=== PATIENT | male | born 1990 | race Caucasian/White ===

== ENCOUNTER 2020-11-27 08:28 | Emergency (ER) | payer BC, OTHER ==
[~2020-11-27] VITALS: Ht 185.4 cm; Wt 138.4 kg
[2020-11-27] MEDS ORDERED: LISI10TA22 PO (08:36)
[2020-11-27] MEDS ORDERED: ACETAMINOPHEN 500 MG TAB PO ONE (09:00)
--- NOTE | 2020-11-27 09:13 | REP ---
INDICATION: 150 weight cruched distal 5th digit. COMPARISON: None. TECHNIQUE: Four views of the right small finger are provided. FINDINGS: Four views of the right small finger demonstrate a crush type fracture of the distal phalanx at the distal tuft. There is associated soft tissue swelling. The bulk of the distal phalanx appears intact with chip fractures along the radial and ulnar side of the distal tuft.. . No opaque foreign body noted. IMPRESSION: Crush-type distal tuft fracture right small finger.. <Electronically signed by Onofre Goel > 11/27/20 [id number]
[2020-11-27 10:13] VITALS: BP 162/82
== END 2020-11-27 10:20 | disposition home or self-care (01) ==
LOC: M ED 08:28
DX: S62.666A Nondisplaced fracture of distal phalanx of right little finger, initial encounter for closed fracture (principal); S67.196A Crushing injury of right little finger, initial encounter; W23.1XXA Caught, crushed, jammed, or pinched between stationary objects, initial encounter; Y92.9 Unspecified place or not applicable; Y93.9 Activity, unspecified; Y99.0 Civilian activity done for income or pay; I10 Essential (primary) hypertension; Z79.899 Other long term (current) drug therapy

== ENCOUNTER → 2021-03-19 | Outpatient (CLI) | payer OTHER ==
[~2021-03-19] MED LIST: LISI10TA22 PO
--- NOTE | 2021-03-19 17:05 | REP ---
INDICATION: PAIN IN RT WRIST R/O LIGAMENT TEAR. COMPARISON: None. TECHNIQUE: Multiple sequences obtained in the axial, coronal and sagittal planes. The study is limited due to patient motion. FINDINGS: Triangular fibrocartilage complex:No evidence of tear. Scapholunate and lunatotriquetral ligaments: Intact. Flexor and extensor tendons: Grossly intact. No tenosynovitis. Carpal tunnel region: No significant abnormality. No abnormal signal in median nerve. No ganglion cyst is seen. Joint fluid: No effusion. Distal radioulnar joint: There is a very tiny amount of fluid present. Bone marrow: No edema or occult fracture. IMPRESSION: Essentially negative MRI right wrist. The study is limited due to patient motion. <Electronically signed by Jack Hernandez > 03/19/21 [id number]
== END ==
LOC: M PLARAD 14:47
PROVIDERS: ATTEND Physician Assistant
DX: M25.531 Pain in right wrist (principal)

== ENCOUNTER → 2024-05-22 | Outpatient (REF) | payer BC | LOC: M LABSMT 14:24 | PROVIDERS: ATTEND Urology | DX: N20.1 Calculus of ureter (principal) ==

== ENCOUNTER → 2024-06-01 | Outpatient (CLI) | payer BC ==
[~2024-06-01] MED LIST changes: +HYDR-3490 PO; +HYDR-3713 PO; +LOSA50TA28 PO; +ONDA-83; +OXYC1TAB23; +TAMS1CAP17 PO
[2024-06-01 07:35] LABS: HEMATOCRIT 48.7 % (42.0-52.0); HEMOGLOBIN 16.4 g/dl (13.5-17.5); MEAN CORPUSCULAR HEMOGLOBIN 28.7 pg (27.0-33.0); MEAN CORPUSCULAR HGB CONC 33.7 g/dl (32.0-36.5); MEAN CORPUSCULAR VOLUME 85.1 fl (80.0-96.0); PLATELET COUNT, AUTOMATED 261 10^3/uL (150-450); RED BLOOD COUNT 5.72 10^6/uL (4.30-6.10); WHITE BLOOD COUNT 8.2 10^3/uL (4.0-10.0)
[2024-06-01 08:07] LABS: ALKALINE PHOSPHATASE 109 U/L (46-116); ALT/SGPT 37 U/L (7.0-40); AST/SGOT 15 U/L (<34); BLOOD UREA NITROGEN 16 MG/DL (9-23); CALCIUM LEVEL 9.5 MG/DL (8.5-10.1); CARBON DIOXIDE LEVEL 29 MMOL/L (20-31); CHLORIDE LEVEL 105 MMOL/L (98-107); CREATININE FOR GFR 0.79 MG/DL (0.70-1.30); GLOMERULAR FILTRATION RATE > 60.0 (>60); GLUCOSE, FASTING 91 MG/DL (60-100); POTASSIUM SERUM 4.1 MMOL/L (3.5-5.1); SODIUM LEVEL 139 MMOL/L (136-145); TOTAL PROTEIN 7.7 G/DL (5.7-8.2)
== END ==
LOC: M EKG 06:49
PROVIDERS: ATTEND Urology
DX: N20.1 Calculus of ureter (principal)

== ENCOUNTER 2024-06-07 08:35 | Day surgery (SDC) | payer BC ==
[~2024-06-07] VITALS: Ht 185.4 cm; Wt 136.4 kg
[~2024-06-07 08:35] MED LIST changes: -HYDR-3713 PO
[2024-06-07] MEDS: LR 1,000 ML IV SCH (09:42)
[2024-06-07] MEDS ORDERED: propofoL 200 MG/20 ML VIAL As Ordered ONE (09:52)
[2024-06-07] MEDS ORDERED: fentaNYL 100 MCG/2 ML INJECTION As Ordered ONE (09:52)
[2024-06-07] MEDS ORDERED: ACETAMINOPHEN 1000MG 100ML IV BAG As Ordered ONE (09:52)
[2024-06-07] MEDS ORDERED: LIDOCAINE 2% 100MG/5ML SDV (FOR ANES.) As Ordered ONE (09:52)
[2024-06-07] MEDS: ceFAZolin SOD 2 GM in IV 1 EA IV ONE (10:34)
[2024-06-07] MEDS ORDERED: KETOROLAC 60MG 2ML VIAL As Ordered ONE (10:38)
[2024-06-07] MEDS: ceFAZolin SOD 1 GM in D5W MINI-BAG PLUS 50 ML IV ONE (10:39)
[2024-06-07] MEDS: ISOVUE-300 61% 100ML VIAL As Ordered ONE (10:39)
[2024-06-07] MEDS ORDERED: HYDR-3713 PO (11:01)
[2024-06-07 12:08] VITALS: BP 140/82; TEMP 98; O2SAT 98
== END 2024-06-07 12:09 | disposition home or self-care (01) ==
LOC: M SDC 08:35
PROVIDERS: ATTEND Urology
DX: N20.1 Calculus of ureter (principal)
CPT/HCPCS: 50590; 74018; J0131; J0690; J1885; J3010; Q9967

== ENCOUNTER → 2024-07-12 | Outpatient (CLI) | payer BC ==
[~2024-07-12] MED LIST changes: +HYDR-3713 PO
== END ==
LOC: M WUC 11:51
PROVIDERS: ATTEND Physician Assistant
DX: N20.0 Calculus of kidney (principal)